=== PATIENT | female | born 1970 | race American Indian/Alaskan Native ===

== ENCOUNTER 2021-08-09 08:00 | Outpatient (CLI) | payer OTHER | END 2021-08-09 08:30 | disposition home or self-care (01) | LOC: PPH VACUNA 08:00 | PROVIDERS: ATTEND Emergency Medicine Pediatric Emergency Medicine | DX: Z23 Encounter for immunization (principal) ==

== ENCOUNTER 2021-12-13 13:23 | Outpatient (CLI) | payer OTHER | END 2021-12-13 13:30 | disposition home or self-care (01) | LOC: RAD 13:23 | PROVIDERS: ATTEND Physical Medicine & Rehabilitation | DX: M54.2 Cervicalgia (principal); M54.12 Radiculopathy, cervical region ==

== ENCOUNTER 2022-04-18 06:39 | Outpatient (CLI) | payer OTHER ==
[2022-04-18] MEDS ORDERED: LYRICA150 MG (09:20)
[2022-04-18] MEDS ORDERED: CYMBALTA60 MG (09:20)
[2022-04-18] MEDS ORDERED: KETO10TA2 (09:20)
== END 2022-04-18 06:47 | disposition home or self-care (01) ==
LOC: LAB 06:39
PROVIDERS: ATTEND Surgery
DX: Z20.822 Contact with and (suspected) exposure to COVID-19 (principal)

== ENCOUNTER 2022-04-18 08:48 | Emergency (ER) | payer OTHER ==
[~2022-04-18] VITALS: Ht 152.4 cm; Wt 88.9 kg
[2022-04-18] MEDS ORDERED: LYRICA150 MG (09:20)
[2022-04-18] MEDS ORDERED: KETO10TA2 (09:20)
[2022-04-18] MEDS ORDERED: CYMBALTA60 MG (09:20)
== END 2022-04-18 14:07 | disposition home or self-care (01) ==
LOC: ER 08:48
DX: U07.1 COVID-19 (principal); Z72.0 Tobacco use

== ENCOUNTER 2022-04-21 08:59 | Outpatient (CLI) | payer OTHER ==
[~2022-04-21 08:59] MED LIST: CYMBALTA60 MG; KETO10TA2; LYRICA150 MG
== END 2022-04-21 10:00 | disposition home or self-care (01) ==
LOC: ASH CLINIC 08:59
PROVIDERS: ATTEND General Practice
DX: Z23 Encounter for immunization (principal); U07.1 COVID-19

== ENCOUNTER → 2022-04-25 06:18 | Outpatient (CLI) | payer OTHER | END | disposition home or self-care (01) | LOC: LAB 06:18 | PROVIDERS: ATTEND Surgery | DX: R05.9 Cough, unspecified (principal); R50.9 Fever, unspecified; Z03.818 Encounter for observation for suspected exposure to other biological agents ruled out ==

== ENCOUNTER 2022-05-19 10:09 | Outpatient (CLI) | payer OTHER ==
[~2022-05-19 10:09] MED LIST changes: +MEDROLPACK PO; +SKELAXIN800 MG PO
== END 2022-05-19 10:14 | disposition home or self-care (01) ==
LOC: MRI 10:09
PROVIDERS: ATTEND Anesthesiology
DX: M54.17 Radiculopathy, lumbosacral region (principal)
CPT/HCPCS: 72148

== ENCOUNTER 2022-07-05 06:59 | Outpatient (CLI) | payer OTHER | END 2022-07-05 07:11 | disposition home or self-care (01) | LOC: LAB 06:59 | DX: E78.5 Hyperlipidemia, unspecified (principal); E55.9 Vitamin D deficiency, unspecified; N39.0 Urinary tract infection, site not specified; R42 Dizziness and giddiness; R10.9 Unspecified abdominal pain; Z00.00 Encounter for general adult medical examination without abnormal findings ==

== ENCOUNTER 2022-07-27 08:00 | Outpatient (CLI) | payer OTHER | END 2022-07-27 08:05 | disposition home or self-care (01) | LOC: PPH VACUNA 08:00 | PROVIDERS: ATTEND Emergency Medicine Pediatric Emergency Medicine | DX: Z23 Encounter for immunization (principal) ==

== ENCOUNTER 2022-07-27 12:50 | Outpatient (CLI) | payer OTHER | END 2022-07-27 13:00 | disposition home or self-care (01) | LOC: PPH VACUNA 12:50 | PROVIDERS: ATTEND Emergency Medicine Pediatric Emergency Medicine | DX: Z23 Encounter for immunization (principal) ==

== ENCOUNTER 2023-06-15 13:54 | Outpatient (CLI) | payer OTHER | END 2023-06-15 14:01 | disposition home or self-care (01) | LOC: MAMO-SONO 13:54 | PROVIDERS: ATTEND Obstetrics & Gynecology | DX: N60.11 Diffuse cystic mastopathy of right breast (principal); N60.12 Diffuse cystic mastopathy of left breast; R10.2 Pelvic and perineal pain; N84.0 Polyp of corpus uteri ==

== ENCOUNTER → 2023-06-16 06:42 | Outpatient (CLI) | payer OTHER | END | disposition home or self-care (01) | LOC: LAB 06:42 | PROVIDERS: ATTEND Obstetrics & Gynecology | DX: D64.9 Anemia, unspecified (principal); E03.8 Other specified hypothyroidism; N95.1 Menopausal and female climacteric states; I10 Essential (primary) hypertension; Z12.73 Encounter for screening for malignant neoplasm of ovary; N30.00 Acute cystitis without hematuria; A64 Unspecified sexually transmitted disease; R97.0 Elevated carcinoembryonic antigen [CEA]; R79.89 Other specified abnormal findings of blood chemistry; E55.0 Rickets, active; E08.9 Diabetes mellitus due to underlying condition without complications; E22.1 Hyperprolactinemia; Z12.11 Encounter for screening for malignant neoplasm of colon ==

== ENCOUNTER 2023-06-30 13:52 | Outpatient (CLI) | payer OTHER | END 2023-06-30 14:02 | disposition home or self-care (01) | LOC: NUCLEAR 13:52 | PROVIDERS: ATTEND Obstetrics & Gynecology | DX: M81.0 Age-related osteoporosis without current pathological fracture (principal) ==

== ENCOUNTER 2023-07-20 13:24 | Outpatient (CLI) | payer OTHER | END 2023-07-20 13:29 | disposition home or self-care (01) | LOC: MRI 13:24 | PROVIDERS: ATTEND Internal Medicine Rheumatology | DX: M54.59 Other low back pain (principal) | CPT/HCPCS: 72148 ==

== ENCOUNTER 2023-08-04 07:38 | Outpatient (CLI) | payer OTHER ==
[2023-08-04 09:20] LABS: HEMATOCRIT 36.5 % (36.0-45.00); HEMOGLOBIN 12.7 g/dL (12.0-15.00); MEAN CELL VOLUME 91.2 fL (80.00-100.00); MEAN CORPUSCULAR HEMOGLOBIN 31.8 pg (27.00-32.0); MEAN CORPUSCULAR HGB CONC 34.8 g/dl (32.0-36.0); PLATELET COUNT 356 K/uL (150-450); RED CELL DISTRIBUTION WIDTH 12.8 % (11.5-14.5)
[2023-08-04 09:51] LABS: PARTIAL THROMBOPLASTIN TIME 29.5 SECONDS (22.0-34.0)
== END 2023-08-04 07:53 | disposition home or self-care (01) ==
LOC: LAB 07:38
DX: D68.9 Coagulation defect, unspecified (principal); D64.9 Anemia, unspecified; M54.51 Vertebrogenic low back pain; M25.551 Pain in right hip; M25.552 Pain in left hip

== ENCOUNTER 2023-09-08 09:30 | Outpatient (CLI) | payer OTHER | END 2023-09-08 09:40 | disposition home or self-care (01) | LOC: PPH VACUNA 09:30 | PROVIDERS: ATTEND Emergency Medicine Pediatric Emergency Medicine | DX: Z23 Encounter for immunization (principal) | CPT/HCPCS: 90686; G0008 ==

== ENCOUNTER 2023-10-11 06:15 | Day surgery (SDC) | payer OTHER | END 2023-10-11 11:55 | disposition home or self-care (01) | LOC: AMB-ENDOS 06:15 | PROVIDERS: ATTEND Internal Medicine Gastroenterology | DX: D12.0 Benign neoplasm of cecum (principal); D12.5 Benign neoplasm of sigmoid colon; K63.5 Polyp of colon; Z12.11 Encounter for screening for malignant neoplasm of colon; Z20.822 Contact with and (suspected) exposure to COVID-19 ==

== ENCOUNTER 2024-06-17 11:41 | Outpatient (CLI) | payer OTHER | END 2024-06-17 11:46 | disposition home or self-care (01) | LOC: RAD 11:41 | PROVIDERS: ATTEND Anesthesiology | DX: M79.671 Pain in right foot (principal); M77.40 Metatarsalgia, unspecified foot ==

== ENCOUNTER 2024-08-16 09:41 | Outpatient (CLI) | payer OTHER | END 2024-08-16 10:00 | disposition home or self-care (01) | LOC: PPH VACUNA 09:41 | PROVIDERS: ATTEND Emergency Medicine Pediatric Emergency Medicine | DX: Z23 Encounter for immunization (principal) ==

== ENCOUNTER 2024-10-18 06:15 | Outpatient (CLI) | payer OTHER ==
[2024-10-18 07:16] LABS: PH,URINE 6.5 (5.0-8.0); URINE APPEARANCE Cloudy; URINE BILIRRUBIN Negative (NEGATIVE); URINE BLOOD Moderate; URINE COLOR Yellow; URINE GLUCOSE Negative (NEGATIVE); URINE KETONE Negative (NEGATIVE); URINE LEUKOCYTE Moderate; URINE NITRATE Negative; URINE PROTEIN Negative (NEGATIVE); URINE UROBILINOGEN 0.2 E.U./dl
[2024-10-18 07:17] LABS: URINE EPITHELIAL CELLS 138.6 uL (0.0-38.8); URINE RBC 115.3 uL (0.0-20.8); URINE WBC 145.4 uL (0.0-23.2)
[2024-10-18 07:38] LABS: HEMATOCRIT 37.1 % (36.0-45.00); HEMOGLOBIN 13.1 g/dL (12.0-15.00); MEAN CELL VOLUME 89.7 fL (80.00-100.00); MEAN CORPUSCULAR HEMOGLOBIN 31.7 pg (27.00-32.0); MEAN CORPUSCULAR HGB CONC 35.3 g/dl (32.0-36.0); PLATELET COUNT 341 K/uL (150-450); RED BLOOD COUNT 4.14 M/uL (4.00-6.00); RED CELL DISTRIBUTION WIDTH 13.3 % (11.5-14.5)
[2024-10-18 07:58] LABS: URINE CAST 0.14 uL (0.0-1.40)
[2024-10-18 08:15] LABS: BILIRUBIN TOTAL 0.34 mg/dL (0.3-1.2); CALCIUM 9.5 mg/dL (8.5-10.1); CHOL HDL RATIO 5.4 (0-5.0); CREATININE SERUM 0.97 mg/dL (0.55-1.02); GFR 59.4; GLOBULINA 3.5 G/DL (2.4-3.5); POTASSIUM 4.32 mEq/L (3.5-5.1); T4 FREE 0.79 NG/ML (0.76-1.46); TOTAL PROTEIN 7.5 gm/dL (6.4-8.2); TSH 2.77 uIU/mL (0.358-3.74)
== END 2024-10-18 06:19 | disposition home or self-care (01) ==
LOC: LAB 06:15
PROVIDERS: ATTEND Obstetrics & Gynecology
DX: D64.9 Anemia, unspecified (principal); Z12.11 Encounter for screening for malignant neoplasm of colon; E03.8 Other specified hypothyroidism; N95.1 Menopausal and female climacteric states; I10 Essential (primary) hypertension; C51.9 Malignant neoplasm of vulva, unspecified; N30.00 Acute cystitis without hematuria; E83.51 Hypocalcemia; A64 Unspecified sexually transmitted disease; N39.0 Urinary tract infection, site not specified; R97.8 Other abnormal tumor markers; E55.9 Vitamin D deficiency, unspecified; A60.9 Anogenital herpesviral infection, unspecified

== ENCOUNTER 2024-10-25 12:24 | Outpatient (CLI) | payer OTHER | END 2024-10-25 12:29 | disposition home or self-care (01) | LOC: MAMO-SONO 12:24 | PROVIDERS: ATTEND Obstetrics & Gynecology | DX: N60.11 Diffuse cystic mastopathy of right breast (principal); N60.12 Diffuse cystic mastopathy of left breast ==

== ENCOUNTER 2025-01-31 15:03 | Emergency (ER) | payer OTHER ==
[~2025-01-31] VITALS: Ht 149.9 cm; Wt 89.8 kg
[2025-01-31] MEDS ORDERED: ACETIC ACID W/H10 ML OTIC (17:34)
[2025-01-31] MEDS ORDERED: AMOX1TAB5 PO (17:34)
== END 2025-01-31 17:42 | disposition home or self-care (01) ==
LOC: ER 15:06
DX: H93.8X1 Other specified disorders of right ear (principal)

== ENCOUNTER → 2025-06-25 06:26 | Outpatient (CLI) | payer OTHER ==
[~2025-06-25 06:26] MED LIST changes: +ACETIC ACID W/H10 ML OTIC; +AMOX1TAB5 PO
[2025-06-25 07:17] LABS: BASO % 0.8 % (0.1-1.2); EOS # 0.12 (0.04-0.54); EOS % 3.1 % (0.7-7.0); LYMPH # 1.34 (1.18-3.74); LYMPH % 34.7 % (19.3-53.1); MEAN PLATELET VOLUME 8.80 fl (9.4-12.4); MONO # 0.29 (0.24-0.82); MONO % 7.5 % (4.7-12.5); NEUT # 2.08 (1.56-6.13); NEUT % 53.9 % (34.0-71.1); RED CELL DISTRIBUTION WIDTH 12.0 % (11.6-14.4)
[2025-06-25 07:27] LABS: URINE APPEARANCE Cloudy; URINE BILIRRUBIN Negative (NEGATIVE); URINE BLOOD Small; URINE COLOR Yellow; URINE GLUCOSE Negative (NEGATIVE); URINE KETONE Negative (NEGATIVE); URINE LEUKOCYTE Moderate; URINE NITRATE Negative; URINE PROTEIN Negative (NEGATIVE); URINE UROBILINOGEN 0.2 E.U./dl
[2025-06-25 07:30] LABS: URINE BACTERIA 6320.2 uL (0.0-1933); URINE EPITHELIAL CELLS 130.9 uL (0.0-38.8); URINE RBC 95.0 uL (0.0-20.8); URINE WBC 99.2 uL (0.0-23.2)
[2025-06-25 07:31] LABS: ERYTHROCYTE SEDIMENTATION RATE 15 mm/hr (0-30)
[2025-06-25 08:11] LABS: ALT/SGPT 29.0 U/L (12-78); AST/SGOT 17.0 U/L (15-37); BILIRUBIN TOTAL 0.42 mg/dL (0.3-1.2); BUN CREA RATIO 15.0 (7.0-25.0); CHOL HDL RATIO 4.8 (0-5.0); CREATININE SERUM 0.88 mg/dL (0.55-1.02); GFR 66.23; GLOBULINA 3.3 G/DL (2.4-3.5); GLUCOSE FASTING 90.0 mg/dL (65-100); HDL 46.0 mg/dl (40-60); LDL 135.0 mg/dl (0-130); OSMOLALITY SERUM 281.0 MOSM/KG (275-295); TSH 2.88 uIU/mL (0.358-3.74); VLDL 39.0 (0-39)
[2025-06-25 08:28] LABS: URINE CAST 0.00 uL (0.0-1.40)
== END | disposition home or self-care (01) ==
LOC: LAB 06:26
PROVIDERS: ATTEND Internal Medicine Rheumatology
DX: E11.9 Type 2 diabetes mellitus without complications (principal); E03.9 Hypothyroidism, unspecified; E78.9 Disorder of lipoprotein metabolism, unspecified; I10 Essential (primary) hypertension

== ENCOUNTER 2025-09-05 11:30 | Outpatient (CLI) | payer OTHER | END 2025-09-05 11:40 | disposition home or self-care (01) | LOC: PPH VACUNA 11:30 | PROVIDERS: ATTEND Emergency Medicine Pediatric Emergency Medicine | DX: Z23 Encounter for immunization (principal) ==

== ENCOUNTER → 2025-10-23 10:45 | Outpatient (CLI) | payer OTHER | END | disposition home or self-care (01) | LOC: NUCLEAR 10:45 | PROVIDERS: ATTEND Internal Medicine Rheumatology | DX: I87.2 Venous insufficiency (chronic) (peripheral) (principal) ==